=== PATIENT | male | born 1960 | race Caucasian/White ===

== ENCOUNTER 2016-09-28 16:11 | Inpatient (IN) | payer OTHER ==
[~2016-09-28] VITALS: Ht 190.5 cm; Wt 91.1 kg
[2016-09-28] MEDS: METOPROLOL TARTRATE 25 MG TAB PO SCH (01:00)
[~2016-09-28 16:11] MED LIST: LACTATED RINGER'S 1000 ML INJ 1,000 ML IV ONE; ONDANSETRON HCL 4 MG/2 ML VIAL IV PUSH ONE; PHENYLEPH/NS 1000 MCG/10 ML SYR IV ONE; PROPOFOL 200 MG/20 ML AMP IV ONE; ePHEDrine/NS 50 MG/5 ML SYR IV ONE
[2016-09-28] MEDS ORDERED: ceFAZolin 2 GM PREMIX 50 ML ONE (16:16)
[2016-09-28] MEDS ORDERED: MORPHINE SULFATE 8 MG/ML INJ ONE (16:17)
[2016-09-28] MEDS ORDERED: GENTAMICIN 80 MG PREMIX 100 ML ONE (16:17)
[2016-09-28] MEDS ORDERED: DIPHTH/TETANUS/ACEL PERTUSSIS (BOOSTER) 0.5 ML VIAL/PFS IM ONE (16:19)
[2016-09-28] MEDS ORDERED: DILTIAZEM HCL 25 MG/5 ML VIAL ONE ×2 (16:23→16:39)
[2016-09-28 16:28] VITALS: O2SAT 100; O2SAT 99
[2016-09-28 16:40] VITALS: O2SAT 100
[2016-09-28 16:41] LABS: AUTOMATED NEUTROPHIL # 6.6 TH/MM3 (1.8-7.7); BASOPHIL % 0.3 % (0.0-2.0); EOSINOPHIL # 0.3 TH/MM3 (0-0.4); EOSINOPHIL % 2.1 % (0.0-4.0); HEMATOCRIT 42.2 % (39.0-51.0); LYMPH % 45.3 % (9.0-44.0); LYMPHOCYTE # 6.6 TH/MM3 (1.0-4.8); MEAN CORPUSCULAR HEMOGLOBIN 33.4 PG (27.0-34.0); MEAN CORPUSCULAR HGB CONC 35.9 % (32.0-36.0); MONO % 7.3 % (0.0-8.0); PLATELET COUNT 220 TH/MM3 (150-450); RED BLOOD COUNT 4.54 MIL/MM3 (4.50-5.90); RED CELL DISTRIBUTION WIDTH 12.6 % (11.6-17.2); WHITE BLOOD COUNT 14.6 TH/MM3 (4.0-11.0)
[2016-09-28 16:42] LABS: HEMO FLAGS AUTO DIFF
[2016-09-28 16:45] LABS: I-STAT POTASSIUM 2.8 MMOL/L (3.5-4.9)
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
[2016-09-28] MEDS ORDERED: IOHEXOL 350 MG/ML 10 ML VIAL (for RAD DIAG) IV ONE (16:49)
[2016-09-28 16:51] LABS: APTT (PATIENT) 26.1 SEC (24.3-30.1); PROTHROMBIN TIME - PATIENT 11.5 SEC (9.8-11.6)
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
[2016-09-28] MEDS ORDERED: PROPOFOL 500 MG/50 ML INJ 50 ML ONE (16:58)
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
[2016-09-28 17:09] LABS: BANDS 1 % (0-6); EOSINOPHILS 1 % (0-4); NEUTROPHIL # MANUAL DIFF 7.9 TH/MM3 (1.8-7.7); PLATELET ESTIMATE SMEAR NORMAL (NORMAL); PLATELET MORPHOLOGY NORMAL (NORMAL); POLYS (SEG NEUTROPHILS) 53 % (16-70); SCAN/DIFF FINAL DIFF MANUAL; WBC DIFF SAMPLE 100
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
[2016-09-28] MEDS ORDERED: GENTAMICIN INJ 80 MG in SODIUM CHLORIDE 0.9% INJ 100 ML IV SCH (18:30)
[2016-09-28] MEDS ORDERED: ceFAZolin 2 GM PREMIX 50 ML IV SCH (18:30)
[2016-09-28] MEDS ORDERED: SODIUM CHLOR 0.9% 250 ML INJ 250 ML ONE (18:47)
[2016-09-28] MEDS ORDERED: GENTAMICIN SULFATE 80 MG/2 ML VIAL ONE ×2 (18:47→19:51)
[2016-09-28] MEDS ORDERED: VANCOMYCIN HCL 1000 MG VIAL ONE (18:47)
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
[2016-09-28] MEDS ORDERED: POTASSIUM CHLOR 20 MEQ PREMIX 100 ML ONE (19:02)
[2016-09-28] MEDS ORDERED: HYDROmorphone HCL PF 2 MG/ML VIAL ONE (19:19)
[2016-09-28] MEDS ORDERED: ACETAMINOPHEN 1000 MG/100 ML VIAL IV ONE (19:19)
[2016-09-28] MEDS ORDERED: POTASSIUM CHLOR 40 MEQ PREMIX 100 ML ONE (19:22)
[2016-09-28] MEDS ORDERED: CHLORHEXIDINE GLUCONATE 2 % 1 PACK (2 CLOTHS) TOP PRN (20:00)
[2016-09-28] MEDS ORDERED: MISCELLANEOUS NURSING INFORMATION XX SCH (20:00)
[2016-09-28] MEDS ORDERED: ONDANSETRON HCL 4 MG/2 ML VIAL IV PRN (20:00)
[2016-09-28] MEDS ORDERED: ENALAPRILAT 1.25 MG/ML VIAL IV PRN (20:00)
[2016-09-28] MEDS ORDERED: MAGNESIUM HYDROXIDE SUSP 30 ML CUP PO PRN ×2 (20:00→20:45)
[2016-09-28] MEDS: PANTOPRAZOLE SODIUM 40 MG VIAL IVP SCH (20:00)
[2016-09-28] MEDS ORDERED: SODIUM CHLORIDE 0.9% FLUSH 5 ML FLUSH IVF PRN ×2 (20:00→20:45)
[2016-09-28] MEDS ORDERED: SODIUM CHLOR 0.9% 1000 ML INJ 1,000 ML IV SCH (20:00)
[2016-09-28] MEDS ORDERED: MORPHINE SULFATE 8 MG/ML INJ IV PUSH PRN (20:45)
[2016-09-28] MEDS ORDERED: ALUMINUM/MAGNESIUM/SIMETH 30 ML CUP PO PRN (20:45)
[2016-09-28] MEDS ORDERED: BISACODYL 10 MG SUPP PR PRN (20:45)
[2016-09-28] MEDS ORDERED: ONDANSETRON HCL 4 MG/2 ML VIAL IVP PRN (20:45)
[2016-09-28] MEDS ORDERED: oxyCODONE/ACETAMINOPHEN 5 MG/325 MG TAB PO PRN ×2 (20:45)
[2016-09-28] MEDS ORDERED: POVIDONE IODINE 10% SOLN 118 ML BOTTLE TOPICAL PRN (20:45)
[2016-09-28] MEDS ORDERED: Post-op Orders (for Pharmacy) MISC XX ONE (20:45)
[2016-09-28] MEDS ORDERED: TEMAZEPAM 15 MG CAP PO PRN (20:45)
[2016-09-28] MEDS: DOCUSATE SODIUM 100 MG CAP PO SCH (21:00)
[2016-09-28] MEDS: SODIUM CHLORIDE 0.9% FLUSH 5 ML FLUSH IVF SCH (21:00)
[2016-09-28] MEDS: LACTATED RINGER'S 1000 ML INJ 1,000 ML IV SCH (21:00)
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
--- NOTE | 2016-09-28 21:04 | RADRPT ---
EXAM DATE/TIME: 09/28/2016 20:15 [place] COMPARISON: ANKLE RIGHT LIMITED (AP&LAT), September 28, 2016, 16:08. INDICATIONS : Right ankle external fixation. MEDICAL HISTORY : Non-responsive SURGICAL HISTORY : Non-responsive ENCOUNTER: Subsequent ACUITY: 1 day PAIN SCORE: Non-responsive. LOCATION: Right ankle FINDINGS: Alignment is anatomic in an external fixator. Talus is intact. CONCLUSION: Anatomic alignment. Pierce Rubio MD FACR on September 28, 2016 at 20:59 Board Certified Radiologist. This report was verified electronically.
[2016-09-28] MEDS ORDERED: fentaNYL CITRATE 250 MCG/5 ML AMP ONE (21:15)
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
[2016-09-28] MEDS ORDERED: METOPROLOL TARTRATE 5 MG/5 ML VIAL IV PUSH ONE (21:30)
[2016-09-28] MEDS ORDERED: DO NOT ADM ANY ANTICOAGULANT DRUGS XX PRN (22:15)
[2016-09-29] VITALS (27 sets, daily range): BP systolic 102–138; BP diastolic 53–77; PULSE 65–137; RESP 18; TEMP 98.3–100.2; O2SAT 95–100
[2016-09-29] MEDS ORDERED: MORPHINE SULFATE 8 MG/ML INJ ONE (01:28)
[2016-09-29] MEDS: CHLORHEXIDINE GLUCONATE 2 % 1 PACK (2 CLOTHS) TOP SCH (04:00)
[2016-09-29] MEDS: LACTATED RINGER'S 1000 ML INJ 1,000 ML IV SCH ×2 (05:00→10:40)
[2016-09-29] MEDS: METOPROLOL TARTRATE 25 MG TAB PO SCH ×2 (05:10→13:49)
--- NOTE | 2016-09-29 07:40 | PD.ORT.PN ---
Subjective Subjective Remarks s/p MCA with open right distal fibula fracture s/p I&D with application of exfix by Dr Hall on 09/28/16 doing well. pain controlled. Objective Vitals Vital Signs Date Time Temp Pulse Resp B/P Pulse Ox O2 Delivery O2 Flow Rate FiO2 09/29/16 07:34 99.1 68 18 111/53 99 09/29/16 07:00 85 09/29/16 06:00 97 09/29/16 05:00 103 09/29/16 04:30 103/64 09/29/16 04:00 97 09/29/16 03:30 122 09/29/16 03:25 98.9 137 18 102/71 100 09/29/16 02:30 97.7 141 16 100/67 99 Nasal Cannula 3 09/29/16 02:15 148 15 115/60 98 Nasal Cannula 3 09/29/16 02:00 146 18 103/70 99 Nasal Cannula 3 09/29/16 01:30 140 20 114/60 99 Nasal Cannula 3 09/29/16 01:15 135 18 109/79 99 Nasal Cannula 3 09/29/16 01:00 130 16 119/77 98 Nasal Cannula 3 09/29/16 00:30 136 17 111/67 98 Nasal Cannula 3 09/29/16 00:00 133 20 116/70 99 Nasal Cannula 3 09/28/16 23:30 134 19 97/70 97 Nasal Cannula 3 09/28/16 23:00 123 15 92/63 98 Nasal Cannula 3 09/28/16 22:30 121 16 111/73 100 Nasal Cannula 3 09/28/16 22:00 97.9 113 17 115/70 97 Nasal Cannula 3 09/28/16 21:45 118 16 112/72 100 Nasal Cannula 3 09/28/16 21:30 120 15 117/73 100 Simple Mask 8 09/28/16 21:15 105 15 115/81 100 Simple Mask 8 09/28/16 21:04 98.0 108 14 104/72 98 Simple Mask 8 09/28/16 16:40 100 100 09/28/16 16:28 99 15.00 100 I/O 09/28/16 09/28/16 09/28/16 09/29/16 09/29/16 09/29/16 07:00 15:00 23:00 07:00 15:00 23:00 Intake Total 240 ml Output Total 300 ml Balance -60 ml Intake Oral 240 ml Output Urine Total 300 ml Result Diagram: 09/28/16 1613 Other Results Laboratory Tests Test 09/28/16 16:13 Prothrombin Time 11.5 SEC (9.8-11.6) Prothromb Time International 1.0 RATIO Ratio Imaging Last 24 hours Impressions Pelvis X-Ray 09/28/161631 Signed Impressions: Service Date/Time: Wednesday, September 28, 2016 16:08 - CONCLUSION: No acute disease. Jose Bravo MD Head CT 09/28/161631 Signed Impressions: Service Date/Time: Wednesday, September 28, 2016 16:38 - CONCLUSION: 1. No intracranial abnormality is seen. 2. Right frontal and parietal scalp injury. Jose Bravo MD Chest X-Ray 09/28/161631 Signed Impressions: Service Date/Time: Wednesday, September 28, 2016 16:08 - CONCLUSION: Right-sided rib fractures. Jose Bravo MD Chest CT 09/28/161631 Signed Impressions: Service Date/Time: Wednesday, September 28, 2016 16:46 - CONCLUSION: 1. Acute, minimally displaced fractures through the lateral aspect of ribs #5 and 6 on the right. 2. Small area of pleural thickening just cephalad to the rib fractures. Lungs are otherwise clear without pneumothorax. 3. Atherosclerotic calcification of the coronary arteries. 4. Marked atrophic changes of the left kidney likely representing chronic vascular compromise. Man Nguyen MD Cervical Spine CT 09/28/161631 Signed Impressions: Service Date/Time: Wednesday, September 28, 2016 16:38 - CONCLUSION: 1. No acute abnormality seen. 2. Degenerative change at the C5-C6 level. Jose Bravo MD Abdomen/Pelvis CT 09/28/161631 Signed Impressions: Service Date/Time: Wednesday, September 28, 2016 16:46 - CONCLUSION: 1. Soft tissue induration with increased density in the subcutaneous fat at the lateral lower pelvis adjacent to the right greater trochanter. 2. Chronic atrophy of the left kidney. Jose Bravo MD Objective Remarks RLE: dressings clean and dry. intact. +exfix. NVI Assessment & Plan Problem List: (1) Open right ankle fracture (2) Syndesmotic disruption of right ankle Assessment and Plan 1) Right open Ankle fx s/p I&D and exfix - POD 1 -NWB -elevate -hold anticoags sign consents -plan for surgery tomorrow for I&D with ORIF -npo after MN Jaison French Sep 29, 2016 07:40
[2016-09-29 07:51] LABS: BASOPHIL % 0.1 % (0.0-2.0); LYMPH % 8.2 % (9.0-44.0); MEAN CELL VOLUME 94.6 FL (80.0-100.0); MEAN CORPUSCULAR HEMOGLOBIN 32.9 PG (27.0-34.0); MEAN CORPUSCULAR HGB CONC 34.8 % (32.0-36.0); MONO % 9.1 % (0.0-8.0); NEUT % 82.6 % (16.0-70.0); PLATELET COUNT 129 TH/MM3 (150-450); RED BLOOD COUNT 3.38 MIL/MM3 (4.50-5.90); WHITE BLOOD COUNT 12.1 TH/MM3 (4.0-11.0)
[2016-09-29 07:54] LABS: HEMO FLAGS AUTO DIFF
[2016-09-29 08:07] LABS: ALKALINE PHOSPHATASE 45 U/L (45-117); ALT (GPT) 37 U/L (12-78); ANION GAP 10 MEQ/L (5-15); AST (GOT) 33 U/L (15-37); BICARBONATE 23.4 MEQ/L (21.0-32.0); BLOOD UREA NITROGEN 18 MG/DL (7-18); CHLORIDE 106 MEQ/L (98-107); GLOMERULAR FILTRATION RATE 63 ML/MIN (>89); POTASSIUM 4.3 MEQ/L (3.5-5.1); SODIUM (NA) 139 MEQ/L (136-145); TOTAL BILIRUBIN ADULT 0.6 MG/DL (0.2-1.0)
[2016-09-29] MEDS: DOCUSATE SODIUM 100 MG CAP PO SCH ×2 (08:10→22:00)
[2016-09-29] MEDS: SODIUM CHLORIDE 0.9% FLUSH 5 ML FLUSH IVF SCH ×2 (08:10→21:00)
[2016-09-29 08:47] LABS: SCAN/DIFF AUTO DIFF CONFIRMED
[2016-09-29] MEDS: ACETAMINOPHEN 325 MG TAB PO PRN ×2 (09:55→22:00)
[2016-09-29] MEDS: DILTIAZEM 125 MG/NS 100 ML IV SCH ×4 (11:45→22:15)
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
[2016-09-29] MEDS: ENOXAPARIN SODIUM 40 MG/0.4 ML SYRINGE SQ SCH ×2 (20:00→22:01)
[2016-09-29] MEDS: ATENOLOL 50 MG TAB PO SCH (21:59)
[2016-09-29] MEDS: MULTIVITAMINS/MINERALS THERAPEUTIC TAB PO SCH (21:59)
[2016-09-29] MEDS: PANTOPRAZOLE SODIUM 40 MG VIAL IVP SCH (22:01)
[2016-09-30] VITALS (16 sets, daily range): BP systolic 99–128; BP diastolic 57–76; PULSE 79–120; RESP 20–21; TEMP 98.6–99.9; O2SAT 95–99
[2016-09-30] MEDS: CHLORHEXIDINE GLUCONATE 2 % 1 PACK (2 CLOTHS) TOP SCH (04:00)
[2016-09-30] MEDS ORDERED: INSULIN HUMAN REGULAR 1,000 UNITS/10 ML VIAL SQ PRN (06:45)
[2016-09-30] MEDS ORDERED: LACTATED RINGER'S 1000 ML IV SCH (06:45)
[2016-09-30] MEDS ORDERED: SODIUM CHLORID 0.9% 500 ML IV SCH (06:45)
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
[2016-09-30] MEDS: SODIUM CHLORIDE 0.9% FLUSH 5 ML FLUSH IVF SCH ×2 (09:43→20:02)
[2016-09-30] MEDS: MULTIVITAMINS/MINERALS THERAPEUTIC TAB PO SCH ×2 (09:43→20:01)
[2016-09-30] MEDS: DOCUSATE SODIUM 100 MG CAP PO SCH ×2 (09:43→20:01)
[2016-09-30] MEDS: ATENOLOL 50 MG TAB PO SCH ×2 (09:43→20:00)
--- NOTE | 2016-09-30 13:31 | HHI.PR ---
Subjective Subjective Notes Pain controlled. Going to OR tomorrow for right fibula ORIF Objective Vitals/I&O Vital Signs Date Time Temp Pulse Resp B/P Pulse Ox O2 Delivery O2 Flow Rate FiO2 09/30/16 08:09 87 115/69 98 09/30/16 03:00 99.9 09/29/16 15:39 18 09/29/16 02:30 Nasal Cannula 3 09/28/16 16:40 100 Labs Laboratory Tests Test 09/28/16 09/28/16 09/29/16 16:13 16:39 07:25 Bedside Hemoglobin 39.0 G/DL Bedside Hematocrit 41.0 % Differential Total Cells 100 Counted Neutrophils % (Manual) 53 % Band Neutrophils % 1 % Lymphocytes % 41 % Monocytes % 4 % Eosinophils % 1 % Neutrophils # (Manual) 7.9 TH/MM3 Platelet Estimate NORMAL Platelet Morphology Comment NORMAL Red Cell Morphology Comment NORMAL Prothrombin Time 11.5 SEC Prothromb Time International 1.0 RATIO Ratio Activated Partial 26.1 SEC Thromboplast Time Bedside Sodium 140 MMOL/L Bedside Potassium 2.8 MMOL/L Bedside Chloride 102 MMOL/L Bedside Blood Urea Nitrogen 22 MG/DL Bedside Creatinine 1.2 MG/DL Bedside Glucose 145 MG/DL Blood Type O POSITIVE Antibody Screen NEGATIVE Crossmatch Leukocyte-Reduced Red Blood Cells Blood Bank Comment White Blood Count 12.1 TH/MM3 Red Blood Count 3.38 MIL/MM3 Hemoglobin 11.1 GM/DL Hematocrit 32.0 % Mean Corpuscular Volume 94.6 FL Mean Corpuscular Hemoglobin 32.9 PG Mean Corpuscular Hemoglobin 34.8 % Concent Red Cell Distribution Width 12.0 % Platelet Count 129 TH/MM3 Mean Platelet Volume 7.3 FL Neutrophils (%) (Auto) 82.6 % Lymphocytes (%) (Auto) 8.2 % Monocytes (%) (Auto) 9.1 % Eosinophils (%) (Auto) 0.0 % Basophils (%) (Auto) 0.1 % Neutrophils # (Auto) 10.0 TH/MM3 Lymphocytes # (Auto) 1.0 TH/MM3 Monocytes # (Auto) 1.1 TH/MM3 Eosinophils # (Auto) 0.0 TH/MM3 Basophils # (Auto) 0.0 TH/MM3 CBC Comment AUTO DIFF Differential Comment AUTO DIFF CONFIRMED Sodium Level 139 MEQ/L Potassium Level 4.3 MEQ/L Chloride Level 106 MEQ/L Carbon Dioxide Level 23.4 MEQ/L Anion Gap 10 MEQ/L Blood Urea Nitrogen 18 MG/DL Creatinine 1.18 MG/DL Estimat Glomerular Filtration 63 ML/MIN Rate Random Glucose 130 MG/DL Calcium Level 8.0 MG/DL Total Bilirubin 0.6 MG/DL Aspartate Amino Transf 33 U/L (AST/SGOT) Alanine Aminotransferase 37 U/L (ALT/SGPT) Alkaline Phosphatase 45 U/L Total Protein 5.8 GM/DL Albumin 3.1 GM/DL Radiology Last Impressions Pelvis X-Ray 09/28/161631 Signed Impressions: Service Date/Time: Wednesday, September 28, 2016 16:08 - CONCLUSION: No acute disease. Jose Bravo MD Head CT 09/28/161631 Signed Impressions: Service Date/Time: Wednesday, September 28, 2016 16:38 - CONCLUSION: 1. No intracranial abnormality is seen. 2. Right frontal and parietal scalp injury. Jose Bravo MD Chest X-Ray 09/28/161631 Signed Impressions: Service Date/Time: Wednesday, September 28, 2016 16:08 - CONCLUSION: Right-sided rib fractures. Jose Bravo MD Chest CT 09/28/161631 Signed Impressions: Service Date/Time: Wednesday, September 28, 2016 16:46 - CONCLUSION: 1. Acute, minimally displaced fractures through the lateral aspect of ribs #5 and 6 on the right. 2. Small area of pleural thickening just cephalad to the rib fractures. Lungs are otherwise clear without pneumothorax. 3. Atherosclerotic calcification of the coronary arteries. 4. Marked atrophic changes of the left kidney likely representing chronic vascular compromise. Man Nguyen MD Cervical Spine CT 09/28/161631 Signed Impressions: Service Date/Time: Wednesday, September 28, 2016 16:38 - CONCLUSION: 1. No acute abnormality seen. 2. Degenerative change at the C5-C6 level. Jose Bravo MD Abdomen/Pelvis CT 09/28/161631 Signed Impressions: Service Date/Time: Wednesday, September 28, 2016 16:46 - CONCLUSION: 1. Soft tissue induration with increased density in the subcutaneous fat at the lateral lower pelvis adjacent to the right greater trochanter. 2. Chronic atrophy of the left kidney. Jose Bravo MD Femur X-Ray 09/28/16 0000 Signed Impressions: Service Date/Time: Wednesday, September 28, 2016 16:08 - CONCLUSION: No fracture is seen. Jose Bravo MD Ankle X-Ray 09/28/16 0000 Signed Impressions: Service Date/Time: Wednesday, September 28, 2016 20:15 - CONCLUSION: Anatomic alignment. Pierce Rubio MD FACR Narrative Exam GENERAL: 56-year-old well-nourished, well developed male lying in bed. SKIN: Warm and dry. HEAD: Normocephalic. CARDIOVASCULAR: Regular rate and rhythm. RESPIRATORY: No accessory muscle use. Lungs clear to auscultation. Breath sounds equal bilaterally. GASTROINTESTINAL: Abdomen soft, non-tender, nondistended. + BS. MUSCULOSKELETAL: Extremities without cyanosis, or edema. RLE with ex-fix in place. + pulses, + sensation x 4 extremities. NEUROLOGICAL: Awake and alert. Normal speech. A/P Problem List: (1) Open right ankle fracture (2) Syndesmotic disruption of right ankle Assessment and Plan INJURIES: RIGHT Rib fx (5,6) Open RIGHT distal fibula fx PMHx: Afib PROCEDURES: 09/29: RIGHT tib/fib ex-fix placement with I&D Diet: Regular, tolerating Pulm: IS. Encourage patient use Pain: Percocet. Morphine IV. Tylenol. Pain controlled. Activity: BR. PT and OT evaluating. (NWB RLE) IV: Cardizem gtt at 5 mg/H - (wean for HR < 100) GI: Protonix IV Bowel: Colace. MOM. Bisacodyl PRN. No BM yet. DVT: SCD's. Lovenox 40 q day Patient to OR in a.m. for ORIF right fibula fracture with Ortho. Cardiology following for A. fib RVR. Wean Cardizem drip off. Continue IV Ancef. Plan of care discussed with patient at bedside. Attending Statement patient seen at bedside tolerating diet npo after mn for OR tomorrow with ortho Attestation The exam, history, and the medical decision-making described in the above note were completed with the assistance of the mid-level provider. I reviewed and agree with the findings presented. I attest that I had a [id number] encounter with the patient on the same day, and personally performed and documented my assessment and findings in the medical record. Problem Qualifiers (1) Open right ankle fracture: Qualified Code: S82.891B - Open right ankle fracture, type I or II, initial encounter (2) Syndesmotic disruption of right ankle: Qualified Code: S93.431A - Syndesmotic disruption of right ankle, initial encounter Yossi Aguiar Sep 30, 2016 13:31 Bony Jones MD Oct 13, 2016 19:31
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
[2016-09-30] MEDS: DILTIAZEM HCL 30 MG TAB PO SCH ×3 (16:24→20:01)
[2016-09-30] MEDS: PANTOPRAZOLE SODIUM 40 MG VIAL IVP SCH (20:00)
[2016-09-30] MEDS: ACETAMINOPHEN 325 MG TAB PO PRN (20:01)
[2016-10-01] VITALS (15 sets, daily range): BP systolic 114–128; BP diastolic 76–90; PULSE 75–92; RESP 6–20; TEMP 98–98.9; O2SAT 97–98
[2016-10-01] MEDS: CHLORHEXIDINE GLUCONATE 2 % 1 PACK (2 CLOTHS) TOP SCH (04:00)
[2016-10-01 06:29] LABS: HEMATOCRIT 30.3 % (39.0-51.0); MEAN CORPUSCULAR HEMOGLOBIN 33.6 PG (27.0-34.0); MEAN CORPUSCULAR HGB CONC 35.7 % (32.0-36.0); PLATELET COUNT 107 TH/MM3 (150-450); RED BLOOD COUNT 3.22 MIL/MM3 (4.50-5.90); RED CELL DISTRIBUTION WIDTH 12.3 % (11.6-17.2); REVIEW FLAG FINAL; WHITE BLOOD COUNT 9.7 TH/MM3 (4.0-11.0)
[2016-10-01 06:57] LABS: BICARBONATE 26.7 MEQ/L (21.0-32.0); POTASSIUM 3.7 MEQ/L (3.5-5.1)
[2016-10-01] MEDS ORDERED: SODIUM CHLOR 0.9% 250 ML INJ 250 ML ONE (07:03)
[2016-10-01] MEDS ORDERED: GENTAMICIN SULFATE 80 MG/2 ML VIAL ONE (07:03)
[2016-10-01] MEDS ORDERED: VANCOMYCIN HCL 1000 MG VIAL ONE (07:03)
[2016-10-01] MEDS ORDERED: HYDR-3366 PO (07:08)
[2016-10-01] MEDS ORDERED: WALKER/ADULT/FO1 MIS (07:08)
[2016-10-01] MEDS ORDERED: ACETAMINOPHEN 1000 MG/100 ML VIAL IV ONE (07:12)
[2016-10-01] MEDS ORDERED: MIDAZOLAM HCL 2 MG/2 ML VIAL ONE (07:13)
[2016-10-01] MEDS ORDERED: FAMOTIDINE 20 MG/2 ML VIAL ONE (07:13)
[2016-10-01] MEDS ORDERED: METOCLOPRAMIDE HCL 10 MG/2 ML VIAL ONE (07:32)
[2016-10-01] MEDS ORDERED: PROPOFOL 200 MG/20 ML AMP IV ONE (08:21)
--- NOTE | 2016-10-01 08:21 | PD.OP ---
cc: Ferny Mcgee MD Operative Report Date of Surgery: Oct 01, 2016 Preoperative Diagnosis: Open right ankle fracture dislocation Right fibula fracture and posterior malleolus fracture Postoperative Diagnosis: Procedure: Open reduction internal fixation right ankle bimalleolar fracture, Removal external fixation Anesthesia: Gen. Surgeon: Ferny Mcgee Mental Health Specialist(s): CRISTINE Ferreira PA-C The surgical procedure was assisted by my physician accounting assistant. My P.A. presence was necessary throughout this case for the manipulation and positioning of the surgical extremity. My P.A. was assisting me throughout the duration of this procedure. The skill set of a physician accounting assistant was medically necessary to complete this procedure. During the surgical case the surgical pathologist was working at the back table and the physician accounting assistant was directly assisting me. Operation and Findings: Patient was seen and evaluated preoperatively and found to have a displaced open right ankle fracture. He previously underwent irrigation and debridement, closed reduction, and external fixation by Dr. Hall. Informed consent was obtained after a detailed discussion of risk and benefits of surgery. The operative site was marked. Patient was brought to the OR, placed on the OR table, and given IV sedation and general endotracheal anesthesia. IV antibiotics were given preoperatively. A timeout procedure was performed. Procedure began with the removal of a portion of the external fixation. Clamps and bars were removed. The pins were left in place at this time. The right leg was prepped with alcohol followed by Hibiclens and draped in the usual sterile fashion. Attention was turned towards the distal fibula. A four-inch incision was made over the distal fibula. The subcutaneous tissue was dissected with Bovie. The fracture site was visualized. The fracture site was cleaned with curets. The fracture was now reduced. The fracture keyed into anatomic alignment. K-wires were used to h old provisional fixation. A lag screw was placed to compress fracture. A Synthes plate was selected. The plate was provisionally held to bone with K-wires. 3.5 cortical screws were used to compress the plate to bone. Multiple screws were placed above and below the fracture. Next attention was turned towards the posterior malleolus. The posterior malleolus fracture was a relatively small fragment of bone. This was well aligned. This was left in place. Next, attention was turned to the syndesmosis. The syndesmosis was stressed. There was no widening of the syndesmosis with external rotation of the ankle. Incisions were thoroughly irrigated. The subcutaneous tissue was closed with 3- 0 PDS and the skin was closed with 3-0 nylon. Sterile dressings were applied. A well molded well-padded splint was applied. The patient was transferred to Recovery in stable condition. Needle and sponge counts were correct. Ferny Mcgee MD Oct 01, 2016 08:21
[2016-10-01] MEDS ORDERED: PHENYLEPH/NS 1000 MCG/10 ML SYR IV ONE (08:22)
[2016-10-01] MEDS ORDERED: ONDANSETRON HCL 4 MG/2 ML VIAL IV PUSH ONE (08:22)
[2016-10-01] MEDS ORDERED: ACETAMINOPHEN/HYDROcodone 325 MG/7.5 MG TAB PO PRN (08:30)
[2016-10-01] MEDS ORDERED: DO NOT ADM ANY ANTICOAGULANT DRUGS XX PRN (08:30)
[2016-10-01] MEDS ORDERED: MORPHINE SULFATE 4 MG/ML INJ IV PUSH PRN (08:30)
[2016-10-01] MEDS ORDERED: Post-op Orders (for Pharmacy) MISC XX ONE (08:46)
[2016-10-01] MEDS ORDERED: *MEPERIDINE 25 MG INJ VIAL PERIprocedural Use ONLY ONE (08:49)
[2016-10-01] MEDS: ATENOLOL 50 MG TAB PO SCH ×2 (10:10→20:59)
[2016-10-01] MEDS: DILTIAZEM HCL 30 MG TAB PO SCH ×4 (10:10→20:59)
[2016-10-01] MEDS: MULTIVITAMINS/MINERALS THERAPEUTIC TAB PO SCH ×2 (10:10→20:59)
[2016-10-01] MEDS: DOCUSATE SODIUM 100 MG CAP PO SCH ×2 (10:10→20:59)
[2016-10-01] MEDS: SODIUM CHLORIDE 0.9% FLUSH 5 ML FLUSH IVF SCH ×2 (10:12→21:00)
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
[2016-10-01] MEDS ORDERED: CRUTMIS3 (12:56)
--- NOTE | 2016-10-01 14:29 | RADRPT ---
EXAM DATE/TIME: 10/01/2016 08:10 [facility] COMPARISON: ANKLE RIGHT LIMITED (AP&LAT), September 28, 2016, 20:15. INDICATIONS : ORIF right ankle. MEDICAL HISTORY : None. SURGICAL HISTORY : External fixator. ENCOUNTER: Subsequent ACUITY: 3 days PAIN SCORE: Non-responsive. LOCATION: Right ankle. FINDINGS: There are postsurgical changes with operative reduction and internal fixation of the previously seen fracture. The alignment is anatomic. CONCLUSION: Postsurgical changes as above. Nile Castañeda MD on October 01, 2016 at 14:27 Board Certified Radiologist. This report was verified electronically.
[2016-10-01] MEDS: ACETAMINOPHEN/HYDROcodone 325 MG/7.5 MG TAB PO PRN ×2 (14:30→21:07)
--- NOTE | 2016-10-01 14:39 | HHI.PR ---
Subjective Subjective Notes S/P ORIF right ankle bimalleolar fracture. Denies pain. Asking when he can go home. Off Cardizem gtt Objective Vitals/I&O Vital Signs Date Time Temp Pulse Resp B/P Pulse Ox O2 Delivery O2 Flow Rate FiO2 10/01/16 13:00 82 10/01/16 11:30 2.00 10/01/16 11:00 98.6 20 121/85 98 10/01/16 09:29 Nasal Cannula 09/28/16 16:40 100 Labs Laboratory Tests Test 10/01/16 05:16 White Blood Count 9.7 Red Blood Count 3.22 Hemoglobin 10.8 Hematocrit 30.3 Mean Corpuscular Volume 94.0 Mean Corpuscular Hemoglobin 33.6 Mean Corpuscular Hemoglobin 35.7 Concent Red Cell Distribution Width 12.3 Platelet Count 107 Mean Platelet Volume 7.3 Sodium Level 141 Potassium Level 3.7 Chloride Level 106 Carbon Dioxide Level 26.7 Anion Gap 8 Blood Urea Nitrogen 13 Creatinine 0.88 Estimat Glomerular Filtration 89 Rate Random Glucose 95 Calcium Level 8.2 Radiology Last Impressions Pelvis X-Ray 09/28/161631 Signed Impressions: Service Date/Time: Wednesday, September 28, 2016 16:08 - CONCLUSION: No acute disease. Jose Bravo MD Head CT 09/28/161631 Signed Impressions: Service Date/Time: Wednesday, September 28, 2016 16:38 - CONCLUSION: 1. No intracranial abnormality is seen. 2. Right frontal and parietal scalp injury. Jose Bravo MD Chest X-Ray 09/28/161631 Signed Impressions: Service Date/Time: Wednesday, September 28, 2016 16:08 - CONCLUSION: Right-sided rib fractures. Jose Bravo MD Chest CT 09/28/161631 Signed Impressions: Service Date/Time: Wednesday, September 28, 2016 16:46 - CONCLUSION: 1. Acute, minimally displaced fractures through the lateral aspect of ribs #5 and 6 on the right. 2. Small area of pleural thickening just cephalad to the rib fractures. Lungs are otherwise clear without pneumothorax. 3. Atherosclerotic calcification of the coronary arteries. 4. Marked atrophic changes of the left kidney likely representing chronic vascular compromise. Man Nguyen MD Cervical Spine CT 1/17/17 1632 Signed Impressions: Service Date/Time: Wednesday, September 28, 2016 16:38 - CONCLUSION: 1. No acute abnormality seen. 2. Degenerative change at the C5-C6 level. Jose Bravo MD Abdomen/Pelvis CT 09/28/16 1632 Signed Impressions: Service Date/Time: Wednesday, September 28, 2016 16:46 - CONCLUSION: 1. Soft tissue induration with increased density in the subcutaneous fat at the lateral lower pelvis adjacent to the right greater trochanter. 2. Chronic atrophy of the left kidney. Jose Bravo MD Femur X-Ray 09/28/16 0000 Signed Impressions: Service Date/Time: Wednesday, September 28, 2016 16:08 - CONCLUSION: No fracture is seen. Jose Bravo MD Ankle X-Ray 09/28/16 0000 Signed Impressions: Service Date/Time: Wednesday, September 28, 2016 20:15 - CONCLUSION: Anatomic alignment. Pierce Rubio MD FACR Narrative Exam GENERAL: 56-year-old well-nourished, well developed male lying in bed. SKIN: Warm and dry. HEAD: Normocephalic. CARDIOVASCULAR: Regular rate and rhythm. RESPIRATORY: No accessory muscle use. Lungs clear to auscultation. Breath sounds equal bilaterally. GASTROINTESTINAL: Abdomen soft, non-tender, nondistended. + BS. MUSCULOSKELETAL: Extremities without cyanosis, or edema. RLE soft splint in place. + pulses, + sensation x 4 extremities. GUZMAN. NEUROLOGICAL: Awake and alert. Normal speech. A/P Problem List: (1) Open right ankle fracture (2) Syndesmotic disruption of right ankle Assessment and Plan INJURIES: RIGHT Rib fx (5,6) Open RIGHT distal fibula fx PMHx: Afib PROCEDURES: 09/29: RIGHT tib/fib ex-fix placement with I&D 10/01: ORIF RIGHT ankle bimalleolar fracture Diet: Regular, tolerating Pulm: IS. Encourage patient use Pain: Percocet & Morphine IV available but patient prefers Tylenol. Pain controlled. Activity: OOB. PT and OT evaluating. (NWB RLE). Crutches training. Encouraged OOB. GI: Protonix IV Bowel: Colace. MOM. Bisacodyl PRN. DVT: SCD's. Lovenox 40 q day Cardiology following for A. fib RVR. Cardizem drip off. HR 70-100 BPM. Patient requests crutches when he is able to go home. DME ordered. Case management assisting with discharge C PT vs outpatient PT. Discharge 1-2 days when cleared by Ortho. Plan of care discussed with patient at bedside. Attending Statement The exam, history, and the medical decision-making described in the above note were completed with the assistance of the mid-level provider. I reviewed and agree with the findings presented. I attest that I had a [id number] encounter with the patient on the same day, and personally performed and documented my assessment and findings in the medical record. Problem Qualifiers (1) Open right ankle fracture: Qualified Code: S82.891B - Open right ankle fracture, type I or II, initial encounter (2) Syndesmotic disruption of right ankle: Qualified Code: S93.431A - Syndesmotic disruption of right ankle, initial encounter Yossi Aguiar Oct 01, 2016 14:39 Alannah Ayon MD Oct 07, 2016 16:31
[2016-10-01] MEDS: ceFAZolin 2 GM PREMIX 50 ML IV SCH ×2 (16:23→23:23)
[2016-10-01] MEDS: PANTOPRAZOLE SOD 40 MG DELAYED RELEASE TAB PO SCH (20:59)
[2016-10-01] MEDS: VANCOMYCIN INJ 1,000 MG in SODIUM CHLOR 0.9% 250 ML INJ 250 ML IV SCH ×2 (21:01→22:08)
--- NOTE | 2016-10-01 22:39 | EKG ---
Date Performed: 10/01/2016 Time Performed: 06:34:52 PTAGE: 56 years EKG: Atrial fibrillation Abnormal ECG NO PREVIOUS TRACING DOCTOR: Deepak Lafleur Interpretating Date/Time 10/01/2016 22:36:15
[2016-10-02] VITALS (29 sets, daily range): BP systolic 106–127; BP diastolic 64–82; PULSE 56–135; RESP 17–20; TEMP 98.2–99.3; O2SAT 96–99
[2016-10-02] MEDS: CHLORHEXIDINE GLUCONATE 2 % 1 PACK (2 CLOTHS) TOP SCH (04:00)
[2016-10-02] MEDS: ACETAMINOPHEN/HYDROcodone 325 MG/7.5 MG TAB PO PRN ×2 (04:25→13:49)
[2016-10-02] MEDS: DOCUSATE SODIUM 100 MG CAP PO SCH ×2 (08:07→20:20)
[2016-10-02] MEDS: ATENOLOL 50 MG TAB PO SCH ×2 (08:07→20:20)
[2016-10-02] MEDS: DILTIAZEM-CD 120 MG CAP ER PO SCH (08:07)
[2016-10-02] MEDS: MULTIVITAMINS/MINERALS THERAPEUTIC TAB PO SCH ×2 (08:07→20:20)
[2016-10-02] MEDS: ceFAZolin 2 GM PREMIX 50 ML IV SCH ×2 (08:08→16:08)
--- NOTE | 2016-10-02 08:09 | PD.ORT.PN ---
Subjective Subjective Remarks Resting comfortably with no new complaints Objective Vitals Vital Signs Date Time Temp Pulse Resp B/P Pulse Ox O2 Delivery O2 Flow Rate FiO2 10/02/16 06:00 78 10/02/16 05:00 84 10/02/16 04:38 98.2 86 18 110/72 97 10/02/16 04:00 86 10/02/16 03:00 79 10/02/16 02:00 75 10/02/16 01:00 69 10/02/16 00:00 Room Air 10/02/16 00:00 62 10/02/16 00:00 98.6 62 18 116/82 98 10/01/16 23:00 77 10/01/16 22:00 80 10/01/16 21:00 85 10/01/16 20:00 98.3 82 20 125/90 97 10/01/16 20:00 82 10/01/16 20:00 Room Air 10/01/16 18:00 75 10/01/16 17:00 76 10/01/16 16:00 80 10/01/16 15:00 98.0 82 20 128/85 98 10/01/16 15:00 85 10/01/16 14:00 78 10/01/16 13:00 82 10/01/16 12:00 75 10/01/16 11:30 2.00 10/01/16 11:00 98.6 75 20 121/85 98 10/01/16 11:00 85 10/01/16 10:00 92 10/01/16 09:50 98.5 92 6 98 10/01/16 09:29 98.5 76 14 108/78 100 Nasal Cannula 2 10/01/16 09:15 91 14 111/81 100 Nasal Cannula 2 10/01/16 09:00 92 14 114/75 98 Nasal Cannula 2 10/01/16 08:47 98.5 96 14 104/62 98 Nasal Cannula 2 I/O 10/01/16 10/01/16 10/01/16 10/02/16 10/02/16 10/02/16 07:00 15:00 23:00 07:00 15:00 23:00 Intake Total 480 ml 725 ml 475 ml 1030 ml Output Total 2200 ml 50 ml 1275 ml 900 ml Balance -1720 ml 675 ml -800 ml 130 ml Intake Oral 480 ml 325 ml 480 ml IV Total 25 ml 150 ml 550 ml Other 700 ml Output Urine Total 2200 ml 1275 ml 900 ml Stool Total 0 ml Estimated Blood Loss 50 ml # Bowel Movements 0 Result Diagram: 10/01/16 0516 10/01/16 0516 Imaging Last 24 hours Impressions Pelvis X-Ray 09/28/161631 Signed Impressions: Service Date/Time: Wednesday, September 28, 2016 16:08 - CONCLUSION: No acute disease. Jose Bravo MD Head CT 09/28/161631 Signed Impressions: Service Date/Time: Wednesday, September 28, 2016 16:38 - CONCLUSION: 1. No intracranial abnormality is seen. 2. Right frontal and parietal scalp injury. Jose Bravo MD Chest X-Ray 09/28/161631 Signed Impressions: Service Date/Time: Wednesday, September 28, 2016 16:08 - CONCLUSION: Right-sided rib fractures. Jose Bravo MD Chest CT 09/28/161631 Signed Impressions: Service Date/Time: Wednesday, September 28, 2016 16:46 - CONCLUSION: 1. Acute, minimally displaced fractures through the lateral aspect of ribs #5 and 6 on the right. 2. Small area of pleural thickening just cephalad to the rib fractures. Lungs are otherwise clear without pneumothorax. 3. Atherosclerotic calcification of the coronary arteries. 4. Marked atrophic changes of the left kidney likely representing chronic vascular compromise. Man Nguyen MD Cervical Spine CT 09/28/161631 Signed Impressions: Service Date/Time: Wednesday, September 28, 2016 16:38 - CONCLUSION: 1. No acute abnormality seen. 2. Degenerative change at the C5-C6 level. Jose Bravo MD Abdomen/Pelvis CT 09/28/161631 Signed Impressions: Service Date/Time: Wednesday, September 28, 2016 16:46 - CONCLUSION: 1. Soft tissue induration with increased density in the subcutaneous fat at the lateral lower pelvis adjacent to the right greater trochanter. 2. Chronic atrophy of the left kidney. Jose Bravo MD Objective Remarks Right lower extremity: Clean dry splint that is intact. Distally intact sensation in all his toes. Is able to move all his toes appropriately. Has good capillary refills. Assessment & Plan Problem List: (1) Open right ankle fracture (2) Syndesmotic disruption of right ankle Assessment and Plan 1) Right open Ankle fx status post open reduction internal fixation and removal of external fixator POD 1 -NWB -elevate Maintain splint Case management for home discharge versus rehabilitation due to living alone at home Cleared for discharge orthopedic standpoint Follow up with Dr. Mcgee or PA in 2 weeks MERRILL GONZALEZ PA-C Oct 02, 2016 08:09
[2016-10-02] MEDS: SODIUM CHLORIDE 0.9% FLUSH 5 ML FLUSH IVF SCH ×2 (08:11→20:21)
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
[2016-10-02] MEDS ORDERED: DIGOXIN 0.5 MG/2 ML VIAL IV PUSH ONE (11:30)
--- NOTE | 2016-10-02 12:34 | HHI.PR ---
Subjective Subjective Notes Episode of Afib RVR today, required IV Digoxin Pain controlled Objective Vitals/I&O Vital Signs Date Time Temp Pulse Resp B/P Pulse Ox O2 Delivery O2 Flow Rate FiO2 10/02/16 11:47 96 21 10/02/16 11:30 98.5 121 20 125/78 10/02/16 07:15 Room Air 10/01/16 11:30 2.00 Labs Laboratory Tests Test 09/28/16 09/28/16 09/29/16 10/01/16 16:13 16:39 07:25 05:16 Bedside Hemoglobin 39.0 G/DL Bedside Hematocrit 41.0 % Differential Total Cells 100 Counted Neutrophils % (Manual) 53 % Band Neutrophils % 1 % Lymphocytes % 41 % Monocytes % 4 % Eosinophils % 1 % Neutrophils # (Manual) 7.9 TH/MM3 Platelet Estimate NORMAL Platelet Morphology Comment NORMAL Red Cell Morphology Comment NORMAL Prothrombin Time 11.5 SEC Prothromb Time International 1.0 RATIO Ratio Activated Partial 26.1 SEC Thromboplast Time Bedside Sodium 140 MMOL/L Bedside Potassium 2.8 MMOL/L Bedside Chloride 102 MMOL/L Bedside Blood Urea Nitrogen 22 MG/DL Bedside Creatinine 1.2 MG/DL Bedside Glucose 145 MG/DL Blood Type O POSITIVE Antibody Screen NEGATIVE Crossmatch Leukocyte-Reduced Red Blood Cells Blood Bank Comment Neutrophils (%) (Auto) 82.6 % Lymphocytes (%) (Auto) 8.2 % Monocytes (%) (Auto) 9.1 % Eosinophils (%) (Auto) 0.0 % Basophils (%) (Auto) 0.1 % Neutrophils # (Auto) 10.0 TH/MM3 Lymphocytes # (Auto) 1.0 TH/MM3 Monocytes # (Auto) 1.1 TH/MM3 Eosinophils # (Auto) 0.0 TH/MM3 Basophils # (Auto) 0.0 TH/MM3 CBC Comment AUTO DIFF Differential Comment AUTO DIFF CONFIRMED Total Bilirubin 0.6 MG/DL Aspartate Amino Transf 33 U/L (AST/SGOT) Alanine Aminotransferase 37 U/L (ALT/SGPT) Alkaline Phosphatase 45 U/L Total Protein 5.8 GM/DL Albumin 3.1 GM/DL White Blood Count 9.7 TH/MM3 Red Blood Count 3.22 MIL/MM3 Hemoglobin 10.8 GM/DL Hematocrit 30.3 % Mean Corpuscular Volume 94.0 FL Mean Corpuscular Hemoglobin 33.6 PG Mean Corpuscular Hemoglobin 35.7 % Concent Red Cell Distribution Width 12.3 % Platelet Count 107 TH/MM3 Mean Platelet Volume 7.3 FL Sodium Level 141 MEQ/L Potassium Level 3.7 MEQ/L Chloride Level 106 MEQ/L Carbon Dioxide Level 26.7 MEQ/L Anion Gap 8 MEQ/L Blood Urea Nitrogen 13 MG/DL Creatinine 0.88 MG/DL Estimat Glomerular Filtration 89 ML/MIN Rate Random Glucose 95 MG/DL Calcium Level 8.2 MG/DL Radiology Last Impressions Pelvis X-Ray 09/28/161631 Signed Impressions: Service Date/Time: Wednesday, September 28, 2016 16:08 - CONCLUSION: No acute disease. Jose Bravo MD Head CT 09/28/161631 Signed Impressions: Service Date/Time: Wednesday, September 28, 2016 16:38 - CONCLUSION: 1. No intracranial abnormality is seen. 2. Right frontal and parietal scalp injury. Jose Bravo MD Chest X-Ray 09/28/161631 Signed Impressions: Service Date/Time: Wednesday, September 28, 2016 16:08 - CONCLUSION: Right-sided rib fractures. Jose Bravo MD Chest CT 09/28/161631 Signed Impressions: Service Date/Time: Wednesday, September 28, 2016 16:46 - CONCLUSION: 1. Acute, minimally displaced fractures through the lateral aspect of ribs #5 and 6 on the right. 2. Small area of pleural thickening just cephalad to the rib fractures. Lungs are otherwise clear without pneumothorax. 3. Atherosclerotic calcification of the coronary arteries. 4. Marked atrophic changes of the left kidney likely representing chronic vascular compromise. Man Nguyen MD Cervical Spine CT 09/28/161631 Signed Impressions: Service Date/Time: Wednesday, September 28, 2016 16:38 - CONCLUSION: 1. No acute abnormality seen. 2. Degenerative change at the C5-C6 level. Jose Bravo MD Abdomen/Pelvis CT 09/28/161631 Signed Impressions: Service Date/Time: Wednesday, September 28, 2016 16:46 - CONCLUSION: 1. Soft tissue induration with increased density in the subcutaneous fat at the lateral lower pelvis adjacent to the right greater trochanter. 2. Chronic atrophy of the left kidney. Jose Bravo MD Femur X-Ray 09/28/16 0000 Signed Impressions: Service Date/Time: Wednesday, September 28, 2016 16:08 - CONCLUSION: No fracture is seen. Jose Bravo MD Ankle X-Ray 09/28/16 0000 Signed Impressions: Service Date/Time: Wednesday, September 28, 2016 20:15 - CONCLUSION: Anatomic alignment. Pierce Rubio MD FACR Narrative Exam GENERAL: 56-year-old well-nourished, well developed male lying in bed. SKIN: Warm and dry. HEAD: Normocephalic. CARDIOVASCULAR: Irregular rate and rhythm. HR 110-140 BPM. RESPIRATORY: No accessory muscle use. Lungs clear to auscultation. Breath sounds equal bilaterally. GASTROINTESTINAL: Abdomen soft, non-tender, nondistended. + BS. MUSCULOSKELETAL: Extremities without cyanosis, or edema. RLE soft splint in place. + pulses, + sensation x 4 extremities. GUZMAN. NEUROLOGICAL: Awake and alert. Normal speech. A/P Problem List: (1) Open right ankle fracture (2) Syndesmotic disruption of right ankle Assessment and Plan INJURIES: RIGHT Rib fx (5,6) Open RIGHT distal fibula fx PMHx: Afib PROCEDURES: 09/29: RIGHT tib/fib ex-fix placement with I&D 10/01: ORIF RIGHT ankle bimalleolar fracture Diet: Regular, tolerating Pulm: IS. Encourage patient use Pain: Percocet & Morphine IV available but patient prefers Tylenol. Pain controlled. Activity: OOB. PT and OT evaluating. (NWB RLE). Crutches training. Encouraged OOB. GI: Protonix IV Bowel: Colace. MOM. Bisacodyl PRN. + BM today. DVT: SCD's. Lovenox 40 daily Cardiology following for A. fib RVR. Patient had an episode of A. fib RVR today , cardiology notified and ordered IV digoxin 1. Patient requests crutches when he is able to go home. DME ordered. Case management assisting with discharge C PT vs outpatient PT. Cleared for discharge by orthopedics. Plan of care discussed with patient at bedside. Plan to discharge when heart rate better controlled. Attending Statement The exam, history, and the medical decision-making described in the above note were completed with the assistance of the mid-level provider. I reviewed and agree with the findings presented. I attest that I had a [id number] encounter with the patient on the same day, and personally performed and documented my assessment and findings in the medical record. chest exam lungs clear, non-labored continue pain control and pulmonary toilet for rib fractures Problem Qualifiers (1) Open right ankle fracture: Qualified Code: S82.891B - Open right ankle fracture, type I or II, initial encounter (2) Syndesmotic disruption of right ankle: Qualified Code: S93.431A - Syndesmotic disruption of right ankle, initial encounter Yossi Aguiar Oct 02, 2016 12:34 Cb Dale MD Nov 07, 2016 00:09
[2016-10-02] MEDS: DILTIAZEM HCL 30 MG TAB PO SCH ×3 (12:48→20:21)
[2016-10-02] MEDS: PANTOPRAZOLE SOD 40 MG DELAYED RELEASE TAB PO SCH (20:21)
[2016-10-03] VITALS (13 sets, daily range): BP systolic 109–130; BP diastolic 64–78; PULSE 74–115; RESP 18; TEMP 97.4–98.7; O2SAT 97–98
[2016-10-03] MEDS: ceFAZolin 2 GM PREMIX 50 ML IV SCH ×2 (00:35→09:47)
[2016-10-03] MEDS: CHLORHEXIDINE GLUCONATE 2 % 1 PACK (2 CLOTHS) TOP SCH (04:00)
[2016-10-03 07:00] LABS: HEMATOCRIT 30.6 % (39.0-51.0); MEAN CELL VOLUME 93.5 FL (80.0-100.0); MEAN CORPUSCULAR HEMOGLOBIN 33.4 PG (27.0-34.0); MEAN CORPUSCULAR HGB CONC 35.7 % (32.0-36.0); PLATELET COUNT 156 TH/MM3 (150-450); RED BLOOD COUNT 3.27 MIL/MM3 (4.50-5.90); RED CELL DISTRIBUTION WIDTH 12.5 % (11.6-17.2); REVIEW FLAG FINAL; WHITE BLOOD COUNT 7.6 TH/MM3 (4.0-11.0)
--- NOTE | 2016-10-03 07:46 | PD.ORT.PN ---
Subjective Subjective Remarks POD 2 s/p ORIF right ankle doing well. pain controlled out of bed with walker Objective Vitals Vital Signs Date Time Temp Pulse Resp B/P Pulse Ox O2 Delivery O2 Flow Rate FiO2 10/03/16 06:00 91 10/03/16 05:00 90 10/03/16 04:00 98.7 94 18 119/76 97 10/03/16 04:00 94 10/03/16 03:00 88 10/03/16 02:00 74 10/03/16 01:00 79 10/03/16 00:00 Room Air 10/03/16 00:00 98.6 80 18 109/64 98 10/03/16 00:00 80 10/02/16 23:00 62 10/02/16 22:00 56 10/02/16 21:00 60 10/02/16 20:00 66 10/02/16 20:00 98.4 66 20 106/64 98 10/02/16 20:00 Room Air 10/02/16 18:18 84 10/02/16 17:42 97 21 10/02/16 17:00 77 10/02/16 16:00 85 10/02/16 15:15 99.3 96 17 106/76 97 10/02/16 15:00 90 10/02/16 14:38 88 10/02/16 13:00 96 10/02/16 12:00 108 10/02/16 11:47 96 21 10/02/16 11:30 98.5 121 20 125/78 99 10/02/16 11:00 130 10/02/16 10:00 116 10/02/16 09:00 135 10/02/16 08:00 124 I/O 10/02/16 10/02/16 10/02/16 10/03/16 10/03/16 10/03/16 07:00 15:00 23:00 07:00 15:00 23:00 Intake Total 1030 ml 1060 ml 340 ml Output Total 900 ml 1425 ml 800 ml Balance 130 ml -365 ml -460 ml Intake Oral 480 ml 960 ml 240 ml IV Total 550 ml 100 ml 100 ml Output Urine Total 900 ml 1425 ml 800 ml # Bowel Movements 0 0 Result Diagram: 10/03/16 0536 10/03/1636 Imaging Last 24 hours Impressions Pelvis X-Ray 09/28/161631 Signed Impressions: Service Date/Time: Wednesday, September 28, 2016 16:08 - CONCLUSION: No acute disease. Jose Bravo MD Head CT 09/28/161631 Signed Impressions: Service Date/Time: Wednesday, September 28, 2016 16:38 - CONCLUSION: 1. No intracranial abnormality is seen. 2. Right frontal and parietal scalp injury. Jose Bravo MD Chest X-Ray 09/28/161631 Signed Impressions: Service Date/Time: Wednesday, September 28, 2016 16:08 - CONCLUSION: Right-sided rib fractures. Jose Bravo MD Chest CT 09/28/161631 Signed Impressions: Service Date/Time: Wednesday, September 28, 2016 16:46 - CONCLUSION: 1. Acute, minimally displaced fractures through the lateral aspect of ribs #5 and 6 on the right. 2. Small area of pleural thickening just cephalad to the rib fractures. Lungs are otherwise clear without pneumothorax. 3. Atherosclerotic calcification of the coronary arteries. 4. Marked atrophic changes of the left kidney likely representing chronic vascular compromise. Man Nguyen MD Cervical Spine CT 09/28/161631 Signed Impressions: Service Date/Time: Wednesday, September 28, 2016 16:38 - CONCLUSION: 1. No acute abnormality seen. 2. Degenerative change at the C5-C6 level. Jose Bravo MD Abdomen/Pelvis CT 09/28/161631 Signed Impressions: Service Date/Time: Wednesday, September 28, 2016 16:46 - CONCLUSION: 1. Soft tissue induration with increased density in the subcutaneous fat at the lateral lower pelvis adjacent to the right greater trochanter. 2. Chronic atrophy of the left kidney. Jose Bravo MD Objective Remarks Right lower extremity: Clean dry splint that is intact. Distally intact sensation in all his toes. Is able to move all his toes appropriately. Has good capillary refills. Assessment & Plan Problem List: (1) Open right ankle fracture (2) Syndesmotic disruption of right ankle Assessment and Plan 1) Right open Ankle fx status post open reduction internal fixation and removal of external fixator POD 2 -NWB -elevate Maintain splint Case management for home discharge versus rehabilitation due to living alone at home Cleared for discharge orthopedic standpoint Follow up with Dr. Mcgee or [place] in 2 weeks Jaison French Oct 03, 2016 07:46
[2016-10-03] MEDS: SODIUM CHLORIDE 0.9% FLUSH 5 ML FLUSH IVF SCH (09:00)
[2016-10-03] MEDS: DILTIAZEM-CD 120 MG CAP ER PO SCH (09:00)
[2016-10-03] MEDS ORDERED: ENOXAPARIN SODIUM 40 MG/0.4 ML SYRINGE SQ SCH (09:00)
[2016-10-03] MEDS ORDERED: DOCU1CAP39 PO (09:30)
[2016-10-03] MEDS ORDERED: ATEN50TA PO (09:30)
[2016-10-03] MEDS ORDERED: CARD180T PO (09:30)
[2016-10-03] MEDS ORDERED: CARD240C6 PO (09:36)
[2016-10-03] MEDS: MULTIVITAMINS/MINERALS THERAPEUTIC TAB PO SCH (09:46)
[2016-10-03] MEDS: DOCUSATE SODIUM 100 MG CAP PO SCH (09:46)
[2016-10-03] MEDS: DILTIAZEM HCL 30 MG TAB PO SCH (09:46)
[2016-10-03] MEDS: ATENOLOL 50 MG TAB PO SCH (09:46)
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
--- NOTE | 2016-11-19 07:41 | MP ---
cc: KEVIN MILLARD AKA: Jose Singh [id number] DATE OF SURGERY: 09/28/2016 PREPROCEDURE DIAGNOSIS Laceration to the right occiput. POSTPROCEDURE DIAGNOSIS Laceration to the right occiput, approximately 5 cm. PROCEDURE Irrigation and closure of scalp laceration. SURGEON Kevin Millard ANESTHESIA 1% lidocaine. DETAILS OF PROCEDURE In the trauma bay the patient was originally given Diprivan for sedation for an ankle reduction. Following attempts at this focus was placed on his right occipital laceration. This area was cleaned with Betadine and irrigated with saline. Bleeding was controlled with pressure. The skin edges were then approximated with curly. The patient tolerated the procedure well. MD TROY Bermudez/THEODORA /12:06 PM /7:36 AM
== END 2016-10-03 14:25 | disposition home or self-care (01) | DRG 493 ==
LOC: NEPI 16:11 → NEDA 17:18 → EDBD 17:18 → NEDA 18:31 → HPAC 19:22 → HCIS 09-29 02:52
PROVIDERS: ADMIT Surgery; ATTEND Surgery
PROC: 0JDQ0ZZ Extraction of Right Foot Subcutaneous Tissue and Fascia, Open Approach (ICD-10-PCS; 2016-09-28)
PROC: 0QSGXZZ Reposition Right Tibia, External Approach (ICD-10-PCS; 2016-09-28)
PROC: 0QSJXZZ Reposition Right Fibula, External Approach (ICD-10-PCS; 2016-09-28)
PROC: 0QHG05Z Insertion of External Fixation Device into Right Tibia, Open Approach (ICD-10-PCS; principal; 2016-09-28 19:00)
PROC: 0QSJ04Z Reposition Right Fibula with Internal Fixation Device, Open Approach (ICD-10-PCS; 2016-10-01)
PROC: 0QPGX5Z Removal of External Fixation Device from Right Tibia, External Approach (ICD-10-PCS; 2016-10-01)
DX: S82.841C Displaced bimalleolar fracture of right lower leg, initial encounter for open fracture type IIIA, IIIB, or IIIC (principal); S22.41XA Multiple fractures of ribs, right side, initial encounter for closed fracture; S93.401A Sprain of unspecified ligament of right ankle, initial encounter; V29.49XA Motorcycle driver injured in collision with other motor vehicles in traffic accident, initial encounter; Y92.410 Unspecified street and highway as the place of occurrence of the external cause; Z79.82 Long term (current) use of aspirin; I48.2 Chronic atrial fibrillation; D72.829 Elevated white blood cell count, unspecified
CPT/HCPCS: 12001; 27840; 70450; 71010; 71260; 72125; 72170; 73551; 73600; 74177; 76000; 80048; 80053; 82435; 82565; 82947; 84132; 84295; 84520; 85007; 85025; 85027; 85610; 85730; 86850; 86900; 86901; 86920; 90471; 90715; 93005; 94150; 96374; 96375; 99152; 99291; C1713; C9113; G0390; J0131; J0690; J1160; J1170; J1580; J1650; J2175; J2250; J2270; J2370; J2405; J2765; J3010; J3370; J3480; J7050; J7120; Q9967